=== PATIENT | female | born 1945 | race Caucasian/White ===

== ENCOUNTER 2017-07-23 12:19 | Emergency (ER) | payer OTHER ==
--- NOTE | 2017-07-23 15:52 | EDPHY ---
General Narrative: CHIEF COMPLAINT: Left leg pain HISTORY OF PRESENT ILLNESS: Patient planes of left calf pain of one-week duration. This was gradual onset and constant duration. [id number] at 1st. Now moderate to severe at times. Does not radiate. No swelling that she could see. No redness. No warmth. No numbness or tingling. This is primarily over the lateral aspect of the anterior camacho. She has ongoing hip pain that is unchanged. She has no new knee, ankle or foot pain. She contacted her primary care physician and they recommended she come to the emergency department for evaluation. No previous DVT or PE. No history of cancer. Does take a topical combination hormone replacement cream. No chest pain or short of breath. No recent hospitalizations or surgery. No other associated complaints or modifying factors. REVIEW OF SYSTEMS: Ten systems reviewed and are negative unless otherwise noted in the HPI PCP: Dr. Amairani Mercado PAST MEDICAL HISTORY: Dyslipidemia, hypothyroid, insomnia SOCIAL HISTORY: Nonsmoker. Daily alcohol use. 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 No wheezing, rhonchi or crackles Cardiovascular: Regular rate and rhythm. No murmur symmetric DP and PT pulses palpable 2+. Neurological: A&O, nonfocal, strength is symmetric in lower extremities. Skin: Warm and dry, no rash. No erythema or cellulitis. No warmth to the left lower extremity. Extremities: Tenderness on the left lateral calf. No palpable cords. No pain with passive dorsiflexion of the left ankle. No edema. Fasciculations noted a left lateral calf. Psychiatric: Mood and affect normal DIFFERENTIAL DIAGNOSES: Including but not limited to DVT, muscle spasm, strain, sprain, dehydration MDM: 3:42 p.m. Left lower extremity pain with no recent trauma or injury. She does have some tenderness along the deep venous system. She has no pitting edema. No erythema. No fever chills. This may be purely be musculoskeletal pain. However do feel the patient but but ultrasound. She is in no acute distress and neurovascular intact. Ultrasound pending. Laboratory studies pending. 4:20 p.m. Laboratory studies are all negative. Doppler ultrasound is currently being performed. 4:40 p.m. Contacted by radiologist Dr. Blake. Ultrasound the left lower extremities negative for DVT. There is some calcification of the arterial structures. Patient re-evaluated. She is feeling well. I confirmed that there are no symptoms that would be consistent with claudication, namely she has no pain with ambulation that stops. The pain is constant and unchanged with exertion. I now the pain is minimal. I do feel this may be related to muscle spasm, thus I will treat her with short course of Flexeril. She will contact her primary care physician for outpatient follow-up. ED precautions discussed. She is comfortable with this plan and discharged in stable condition. Well's Criteria Score: 1. Active Cancer: No 2. Bedridden >3 days recently: No 3. Majory surgery within 4 weeks: No 4. Calf swelling >3cm: No 5. Collateral superficial veins: No 6. Entire leg swollen: No 7. Localized tenderness along venous system: Yes 8. Pitting edema to symptomatic leg: No 9: Paralysis, paresis or recent immobilization: No 10: Previous DVT: No 11: Alternative diagnosis as or more likely: No Total Score: 2 SUPERVISION: Patient was independently examined, but I discussed the case with my secondary supervising physician Dr. Byrne - History Smoking Status: Former smoker - Objective Vital Signs: Initial Vital Signs Temperature (C) 98.1 F 07/23/17 12:25 Heart Rate 58 L 07/23/17 12:25 Respiratory Rate 18 07/23/17 12:25 Blood Pressure 124/63 H 07/23/17 12:25 O2 Sat (%) 98 07/23/17 12:25 O2 Delivery Mode Room Air Allergies/Adverse Reactions: iodine Allergy (Intermediate, Verified 07/23/17 12:26) Hives Home Medications: Medication Instructions Recorded CYCLOBENZAPRINE HCL [Flexeril] 5 mg PO TIDPRN PRN #15 tab 07/23/17 Levothyroxine [Synthroid 100 mcg 100 mcg PO DAILY06 07/23/17 (*)] Lipitor 10 mg (*) 07/23/17 Zaleplon [Sonata] 5 mg PO 07/23/17 celeCOXIB [Celebrex (*)] 200 mg PO 07/23/17 Laboratory Results: Laboratory Results 07/23/17 15:45 07/23/17 15:45 07/23/17 07/23/17 15:45 15:45 WBC 6.94 10^3/uL 10^3/uL (3.80-9.50) RBC 4.52 10^6/uL 10^6/uL (4.18-5.33) Hgb 14.3 g/dL g/dL (12.6-16.3) Hct 42.1 % % (38.0-47.0) MCV 93.1 fL fL (81.5-99.8) MCH 31.6 pg pg (27.9-34.1) MCHC 34.0 g/dL g/dL (32.4-36.7) RDW 13.0 % % (11.5-15.2) Plt Count 165 10^3/uL 10^3/uL (150-400) MPV 10.9 fL fL (8.7-11.7) Neut % (Auto) 40.0 % % (39.3-74.2) Lymph % (Auto) 44.5 % % (15.0-45.0) [place] % (Auto) 10.5 % % (4.5-13.0) Eos % (Auto) 4.5 % % (0.6-7.6) Baso % (Auto) 0.4 % % (0.3-1.7) Nucleat RBC Rel Count 0.0 % % (0.0-0.2) Absolute Neuts (auto) 2.77 10^3/uL 10^3/uL (1.70-6.50) Absolute Lymphs (auto) 3.09 10^3/uL H 10^3/uL (1.00-3.00) Absolute Monos (auto) 0.73 10^3/uL 10^3/uL (0.30-0.80) Absolute Eos (auto) 0.31 10^3/uL 10^3/uL (0.03-0.40) Absolute Basos (auto) 0.03 10^3/uL 10^3/uL (0.02-0.10) Absolute Nucleated RBC 0.00 10^3/uL 10^3/uL (0-0.01) Immature Gran % 0.1 % % (0.0-1.1) Immature Gran # 0.01 10^3/uL 10^3/uL (0.00-0.10) Sodium 144 mEq/L mEq/L (134-144) Potassium 4.1 mEq/L mEq/L (3.5-5.2) Chloride 107 mEq/L mEq/L (97-110) Carbon Dioxide 23 mEq/l mEq/l (22-31) Anion Gap 14 mEq/L mEq/L (8-16) BUN 23 mg/dL mg/dL (7-23) Creatinine 0.7 mg/dL mg/dL (0.6-1.0) Estimated GFR > 60 Glucose 91 mg/dL mg/dL (70-100) Calcium 9.8 mg/dL mg/dL (8.5-10.4) Magnesium 2.1 mg/dL mg/dL (1.6-2.3) Creatine Kinase 68 IU/L IU/L (0-156) Departure - Departure Disposition: Home, Routine, Self-Care Clinical Impression: Leg pain, left Condition: Good Instructions: Leg Pain (ED), Muscle Spasm (ED) Additional Instructions: 1. Pain medication as prescribed as needed 2. Contact your primary care physician for outpatient follow-up 3. Return to ER for any exertional calf pain, chest pain or shortness of breath Referrals: Amairani Mercado MD [Primary Care Provider] - As per Instructions Prescriptions: CYCLOBENZAPRINE HCL [Flexeril] 5 mg PO TIDPRN PRN #15 tab PRN Reason: Spasms
[2017-07-23 15:59] LABS: % IMMATURE GRANULYOCYTES 0.1 % (0.0-1.1); ABSOLUTE IMMATURE GRANULOCYTES 0.01 10^3/uL (0.00-0.10); ADD DIFF? NO; ADD MORPH? NO; ADD SCAN? NO; ATYPICAL LYMPHOCYTE FLAG 10 (0-99); FRAGMENT RBC FLAG 0 (0-99); HEMATOCRIT 42.1 % (38.0-47.0); HEMOGLOBIN 14.3 g/dL (12.6-16.3); LEFT SHIFT FLG 0 (0-99); LIPEMIA HEMOLYSIS FLAG 90 (0-99); MEAN CELL HEMOGLOBIN 31.6 pg (27.9-34.1); MEAN CELL VOLUME 93.1 fL (81.5-99.8); MEAN PLATELET VOLUME 10.9 fL (8.7-11.7); PLATELET CLUMPS FLAG 0 (0-99); PLATELET COUNT 165 10^3/uL (150-400); RED BLOOD CELL COUNT 4.52 10^6/uL (4.18-5.33)
[2017-07-23 16:15] LABS: ANION GAP 14 mEq/L (8-16); CALCIUM 9.8 mg/dL (8.5-10.4); CARBON DIOXIDE 23 mEq/l (22-31); CHLORIDE 107 mEq/L (97-110); CREATININE 0.7 mg/dL (0.6-1.0); GLOMERULAR FILTRATION RATE > 60; GLUCOSE 91 mg/dL (70-100); MAGNESIUM 2.1 mg/dL (1.6-2.3); POTASSIUM 4.1 mEq/L (3.5-5.2); SODIUM 144 mEq/L (134-144)
[2017-07-23 17:21] VITALS: BP 99/66; PULSE 53; RESP 16; TEMP 96.8; O2SAT 96
== END 2017-07-23 17:19 | disposition home or self-care (01) ==
DX: M79.605 Pain in left leg (principal); Z87.891 Personal history of nicotine dependence

== ENCOUNTER → 2018-04-11 | Outpatient (CLI) | payer OTHER | LOC: FIMAGING 13:50 | PROVIDERS: ATTEND Internal Medicine | DX: G56.91 Unspecified mononeuropathy of right upper limb (principal); M79.602 Pain in left arm; R06.02 Shortness of breath; M54.9 Dorsalgia, unspecified ==